=== PATIENT | male | born 1995 | race Caucasian/White ===

== ENCOUNTER 2016-03-24 13:02 | Outpatient (CLI) ==
[2015-02-10 09:06] VITALS: BMI 22.8
[2016-03-24 13:28] LABS: BASOPHILS # (AUTO) 0.1 K/uL (0-0.2); EOSINOPHILS # (AUTO) 0.2 K/ul (0.0-0.7); HEMATOCRIT 44.2 % (42.0-52.0); HEMOGLOBIN 14.5 g/dl (14.0-18.0); IMMATURE GRANULOCYTE % (AUTO) 0.3 % (0.0-5.0); LYMPHOCYTES # (AUTO) 2.1 K/uL (0.60-3.4); LYMPHOCYTES % (AUTO) 27.2 (10.0-50.0); MEAN CORPUSCULAR HEMOGLOBIN 28.5 pg (27.0-31.0); MEAN CORPUSCULAR HGB CONC 32.8 (31.8-35.4); MONOCYTES # (AUTO) 0.6 K/uL (0.4-2.0); MONOCYTES % (AUTO) 7.9 (0-10); NEUTROPHILS # (AUTO) 4.7 K/ul (2.0-6.9); NEUTROPHILS % (AUTO) 60.6; PLATELET COUNT 289 10^3/uL (140-440); RED BLOOD COUNT 5.08 10^6/ul (4.70-6.10); WHITE BLOOD COUNT 7.76 K/ul (4.2-10.2)
[2016-03-24 14:01] LABS: ALBUMIN 3.8 g/dL (3.4-5.0); ALBUMIN/GLOBULIN RATIO 1.23; ANION GAP 13.6; BILIRUBIN,TOTAL 0.35 mg/dL (0.00-1.20); BUN/CREATININE RATIO 14.77; CALCIUM 9.4 mg/dL (8.2-10.2); CHOL/HDL RATIO 4.4 (4.5-6.4); CREATININE 0.88 mg/dL (0.60-1.10); POTASSIUM 4.6 mmol/L (3.5-5.1); TOTAL PROTEIN 6.9 g/dL (6.4-8.2)
== END 2016-03-24 13:03 | disposition home or self-care (01) ==
LOC: LAB 13:02
PROVIDERS: ATTEND Nurse Practitioner Family
DX: Z20.5 Contact with and (suspected) exposure to viral hepatitis (principal); Z72.0 Tobacco use; Z00.00 Encounter for general adult medical examination without abnormal findings
CPT/HCPCS: 36415; 80053; 80061; 80074; 84443; 85025

== ENCOUNTER 2016-09-15 14:10 | Outpatient (CLI) ==
[2015-02-10 09:06] VITALS: BMI 22.8
--- NOTE | 2016-09-15 15:09 | CT ---
EXAM: CT of the right hand without contrast History: Right hand pain. Comparison: Right hand radiograph 05/05/2014 Technique: Multiplanar CT images through the right hand were obtained without the administration of IV contrast Findings: No acute fracture or dislocation. No abnormal calcifications or radiopaque foreign adam s. Joint spaces are relatively preserved. Surrounding soft tissues demonstrate no grossly acute fi ndings. Impression: No acute osseous abnormality.
== END 2016-09-15 14:11 | disposition home or self-care (01) ==
LOC: RAD 14:10
PROVIDERS: ATTEND Nurse Practitioner Family
DX: M79.641 Pain in right hand (principal); R29.898 Other symptoms and signs involving the musculoskeletal system